=== PATIENT | female | born 1955 | race Caucasian/White ===

== ENCOUNTER 2016-10-22 17:20 | Emergency (ER) | payer OTHER ==
[~2016-10-22] VITALS: Ht 157.5 cm; Wt 57.7 kg
[2016-10-22 17:25] VITALS: BP 116/71; TEMP 98.8
[2016-10-22] MEDS ORDERED: SYNTHROID0.05 MG/TA PO (17:32)
[2016-10-22] MEDS ORDERED: VITAMIN D 50,1.25 MG PO (17:33)
[2016-10-22] MEDS ORDERED: CELEBREX 200MG200 MG PO (17:34)
[2016-10-22] MEDS ORDERED: SEPTRA DS 8001 TAB PO (17:34)
[2016-10-22] MEDS ORDERED: ZESTORETIC 12.51 TA1 PO (17:35)
[2016-10-22] MEDS ORDERED: MOTRIN 800800 MG/TAB PO (17:35)
[2016-10-22] MEDS ORDERED: CEPHALEXIN500 M1 PO (18:33)
[2016-10-22 18:43] VITALS: PULSE 76
[2016-10-22] MEDS ORDERED: NORCO 325 MG-51 TAB PO (18:45)
== END 2016-10-22 18:43 | disposition home or self-care (01) ==
LOC: COL.ER 17:20
DX: N75.1 Abscess of Bartholin's gland (principal); I10 Essential (primary) hypertension

== ENCOUNTER 2016-10-28 14:55 | Emergency (ER) | payer OTHER ==
[~2016-10-28] VITALS: Ht 160 cm; Wt 57.7 kg
[~2016-10-28 14:55] MED LIST: CELEBREX 200MG200 MG PO; CEPHALEXIN500 M1 PO; MOTRIN 800800 MG/TAB PO; NORCO 325 MG-51 TAB PO; SEPTRA DS 8001 TAB PO; SYNTHROID0.05 MG/TA PO; VITAMIN D 50,1.25 MG PO; ZESTORETIC 12.51 TA1 PO
[2016-10-28 16:46] LABS: PH 6 (5-8); SQUAMOUS EPITHELIAL 0-2 /hpf; URINE APPEARANCE Clear; URINE BACTERIA None Seen /hpf; URINE BILIRUBIN Negative (NEGATIVE); URINE BLOOD Negative (NEGATIVE); URINE COLOR Straw; URINE GLUCOSE Negative (NEGATIVE); URINE KETONE Negative (NEGATIVE); URINE RBC 0-2 /hpf; URINE UROBILINOGEN Negative (NEGATIVE); URINE WBC 0-2 /hpf
[2016-10-28 17:30] VITALS: BP 121/62; PULSE 75; TEMP 97.8
== END 2016-10-28 17:30 | disposition home or self-care (01) ==
LOC: COL.ER 14:55
PROVIDERS: Emergency Medicine
DX: Z48.816 Encounter for surgical aftercare following surgery on the genitourinary system (principal); N75.0 Cyst of Bartholin's gland

== ENCOUNTER 2019-10-06 15:11 | Emergency (ER) | payer OTHER ==
[~2019-10-06] VITALS: Ht 152.4 cm; Wt 61.8 kg
[2019-10-06] MEDS ORDERED: TAMIFLU 75MG75 MG PO (15:45)
[2019-10-06] MEDS ORDERED: PROMETHAZINE12.5 M5 PO ×2 (15:45)
[2019-10-06] MEDS ORDERED: ZOFRAN 4MG T4 MG/TAB PO (15:57)
[2019-10-06 16:04] VITALS: BP 115/61; PULSE 73; TEMP 98.6
== END 2019-10-06 16:04 | disposition home or self-care (01) ==
LOC: COL.ER 15:11
DX: J11.1 Influenza due to unidentified influenza virus with other respiratory manifestations (principal); I10 Essential (primary) hypertension; E03.9 Hypothyroidism, unspecified; R11.10 Vomiting, unspecified
CPT/HCPCS: J1885

== ENCOUNTER 2021-01-07 11:58 | Emergency (ER) | payer OTHER ==
[~2021-01-07] VITALS: Ht 152.4 cm; Wt 68.2 kg
[~2021-01-07 11:58] MED LIST changes: +PROMETHAZINE12.5 M5 PO; +TAMIFLU 75MG75 MG PO; +ZOFRAN 4MG T4 MG/TAB PO
[2021-01-07 12:10] VITALS: TEMP 96.8
[2021-01-07 12:32] LABS: COLLECTION METHOD CLEAN CATCH
[2021-01-07 12:42] LABS: PH 6 (5-8); SQUAMOUS EPITHELIAL 0-2 /hpf; URINE APPEARANCE Clear; URINE BACTERIA None Seen /hpf; URINE BILIRUBIN Negative (NEGATIVE); URINE BLOOD 1+ (NEGATIVE); URINE COLOR Straw; URINE GLUCOSE Negative (NEGATIVE); URINE KETONE Negative (NEGATIVE); URINE LEUKOCYTE ESTERASE 1+ (NEGATIVE); URINE NITRATE Negative (NEGATIVE); URINE PROTEIN(semi-quant) Negative (NEGATIVE); URINE RBC 0-2 /hpf; URINE UROBILINOGEN Negative (NEGATIVE)
[2021-01-07 12:49] LABS: BASO % 0.2 % (0.0-2.0); EOS # 0.1 (0.0-0.7); EOS % 1.5 % (0-4.0); GRAN # 6.2 (1.4-6.5); GRAN % 73.5 % (42.2-75.2); HEMATOCRIT 39.6 % (37.0-47.0); HEMOGLOBIN 12.8 g/dl (12.5-16.0); LYMPH # 1.7 (1.2-3.4); LYMPH % 20.6 % (20.0-51.0); MEAN CELL VOLUME 88 fl (80.0-100.0); MEAN CORPUSCULAR HEMOGLOBIN 29 pg (27.0-31.0); MEAN CORPUSCULAR HGB CONC 32 g/dl (33.0-37.0); MEAN PLATELET VOLUME 9.4 fl (7.4-10.4); MONO # 0.3 (0.1-0.6); PLATELET COUNT 234 K/mm3 (130-400); RED BLOOD COUNT 4.49 M/mm3 (4.10-5.30); REDCELL DISTRIBUTION WIDTH-CV 12.7 % (11.5-14.5)
[2021-01-07 13:10] LABS: ALBUMIN 3.9 gm/dL (3.5-5.0); BILIRUBIN,TOTAL 0.1 mg/dL (0.0-1.0); CALCIUM 9.1 mg/dL (8.4-10.2); CREATININE, serum 0.57 (0.52-1.25); POTASSIUM 3.8 mmol/L (3.4-5.0); TOTAL PROTEIN 7.8 gm/dL (6.4-8.2)
[2021-01-07] MEDS ORDERED: CEPHALEXIN500 M1 PO (15:19)
[2021-01-07 15:28] VITALS: BP 146/70; PULSE 93
== END 2021-01-07 15:30 | disposition home or self-care (01) ==
LOC: COL.ER 11:58
PROVIDERS: Physician Assistant
DX: R10.12 Left upper quadrant pain (principal); I10 Essential (primary) hypertension; E03.9 Hypothyroidism, unspecified; Z79.890 Hormone replacement therapy
CPT/HCPCS: J1885; J7030; Q9967

== ENCOUNTER 2021-12-21 13:20 | Emergency (ER) | payer OTHER ==
[~2021-12-21] VITALS: Ht 147.3 cm; Wt 61.4 kg
[2021-12-21 14:44] LABS: BASO % 0.4 % (0.0-2.0); EOS % 0.2 % (0.0-4.0); GRAN % 86.1 % (42.2-75.2); HEMATOCRIT 39.9 % (37.0-47.0); HEMOGLOBIN 13.1 g/dl (12.5-16.0); LYMPH % 10.5 % (20.0-51.0); MEAN CELL VOLUME 87 fl (80.0-100.0); MEAN CORPUSCULAR HEMOGLOBIN 29 pg (27-31); MEAN CORPUSCULAR HGB CONC 33 g/dl (33.0-37.0); MEAN PLATELET VOLUME 9.4 fl (7.4-10.4); MONO # 0.2 K/mm3 (0.1-0.6); MONO % 2.5 % (1.7-9.3); PLATELET COUNT 245 K/mm3 (130-400); RED BLOOD COUNT 4.57 M/mm3 (4.10-5.30); REDCELL DISTRIBUTION WIDTH-CV 12.7 % (11.5-14.5)
[2021-12-21 14:56] LABS: ALBUMIN 3.7 gm/dL (3.4-4.8); BILIRUBIN,TOTAL 0.3 mg/dL (0.2-1.2); CALCIUM 8.7 mg/dL (8.4-10.2); CREATININE, serum 0.68 mg/dL (0.57-1.11); POTASSIUM 3.6 mmol/L (3.5-4.5); TOTAL PROTEIN 7.1 gm/dL (6.2-8.1)
[2021-12-21] MEDS ORDERED: ANTIVERT 25MG25 MG PO (15:18)
[2021-12-21 15:44] VITALS: BP 136/77; PULSE 87; TEMP 98.7
== END 2021-12-21 15:45 | disposition home or self-care (01) ==
LOC: COL.ER 13:20
PROVIDERS: Student in an Organized Health Care Education/Training Program
DX: R42 Dizziness and giddiness (principal)